=== PATIENT | male | born 1980 | race Caucasian/White ===

== ENCOUNTER 2017-01-07 12:36 | Emergency (ER) | payer OTHER | END 2017-01-07 14:47 | disposition home or self-care (01) | LOC: ER 12:36 | DX: S33.5XXA Sprain of ligaments of lumbar spine, initial encounter (principal); X50.0XXA Overexertion from strenuous movement or load, initial encounter; I10 Essential (primary) hypertension; Z79.899 Other long term (current) drug therapy | CPT/HCPCS: 72100; 99283-25 ==